=== PATIENT | female | born 1985 | race Caucasian/White ===

== ENCOUNTER 2024-04-18 12:01 | Inpatient (IN) | payer OTHER ==
[2024-04-18 12:49] VITALS: BMI 33.9
[2024-04-18] MEDS ORDERED: IBUPROFEN 400 MG TABLET (FP) PO PRN (13:29)
[2024-04-18] MEDS ORDERED: MAGNESIUM HYDROX 2400MG/30ML ORAL SUSPENSION 30 ML CUP PO PRN (13:29)
[2024-04-18] MEDS ORDERED: BENZOCAINE/MENTHOL (CHLORASEPTIC ) LOZENGE MM PRN (13:29)
[2024-04-18] MEDS ORDERED: LOPERAMIDE HCL 2 MG CAPSULE PO PRN (13:29)
[2024-04-18] MEDS ORDERED: guaiFENesin 600 MG TABLET.ER (FP) PO PRN (13:29)
[2024-04-18] MEDS ORDERED: POLYETHYLENE GLYCOL (HEALTHYLAX) 3350 17 GM PACKET PO PRN (13:29)
[2024-04-18] MEDS ORDERED: BENZONATATE 200 MG CAPSULE PO PRN (13:29)
[2024-04-18] MEDS ORDERED: ACETAMINOPHEN 325 MG TABLET (FP) PO PRN (13:29)
[2024-04-18] MEDS: PHENAZOPYRIDINE HCL 100 MG TABLET (FP) PO ONE (15:02)
[2024-04-18] MEDS: NICOTINE POLACRILEX 2 MG GUM BUC PRN (15:40)
[2024-04-18] MEDS: IBUPROFEN 600 MG TABLET (FP) PO PRN (16:40)
[2024-04-18 17:42] LABS: PH,URINE 6.5 (5.0-8.0); URINE APPEARANCE CLEAR; URINE BILIRUBIN NEGATIVE (NEGATIVE); URINE COLOR YELLOW; URINE GLUCOSE (UA) 2+ (NEGATIVE); URINE KETONE NEGATIVE (NEGATIVE); URINE LEUK ESTERASE NEGATIVE (NEGATIVE); URINE NITRITE POSITIVE (NEGATIVE); URINE PROTEIN NEGATIVE (NEGATIVE); URINE UROBILINOGEN 0.2 mg/dL (0.2-1.0)
[2024-04-18 18:07] LABS: HYALINE CASTS 0.27 /uL (0-3.1)
[2024-04-18] MEDS: hydrOXYzine PAMOATE 25 MG CAPSULE (FP) PO PRN (18:14)
[2024-04-18] MEDS: MELATONIN 5 MG TABLETS PO SCH (21:09)
[2024-04-18] MEDS: GABAPENTIN 100 MG CAPSULE PO SCH (21:09)
[2024-04-18] MEDS: THIAMINE 100 MG TABLET PO SCH (21:10)
[2024-04-18] MEDS: BUPRENORPHINE/NALOXONE 8 MG/2 MG FILM PACKET SL SCH (21:10)
[2024-04-19] MEDS: PHENAZOPYRIDINE HCL 100 MG TABLET (FP) PO ONE (09:16)
[2024-04-19] MEDS: SULFAMETHOXAZOLE/TRIMETHOPRIM 800MG/160MG D.S. TABLET PO SCH (09:16)
[2024-04-19] MEDS: PRENATAL VITAMINS W/ FOLIC ACID TABLET (FP) PO SCH (09:16)
[2024-04-19] MEDS: NICOTINE 21 MG/24 HOURS TOPICAL PATCH TD SCH (09:16)
[2024-04-19 12:04] LABS: POTASSIUM 4.8 mmol/L (3.5-5.1)
[2024-04-19 12:07] LABS: BLOOD UREA NITROGEN 15.7 mg/dL (7-18); CALCIUM 8.9 mg/dL (8.5-10.1); HEMATOCRIT 35.6 % (32.4-45.2); HEMOGLOBIN 12.3 GM/dL (10.7-15.3); MCH 29.3 pg (25.7-33.7); MCHC 34.5 g/dl (32.0-36.0); MEAN CELL VOLUME 85.1 fl (80-96); MEAN PLT VOLUME 8.1 fl (7.5-11.1); PLATELET COUNT 225 10^3/uL (134-434); RBC 4.19 M/mm3 (3.60-5.2); RDW 13.2 % (11.6-15.6); WHITE BLOOD COUNT 4.2 K/mm3 (4.0-10.0)
[2024-04-19 12:08] LABS: ALBUMIN 3.4 g/dl (3.4-5.0)
[2024-04-19 12:10] LABS: CREATININE 0.6 mg/dL (0.55-1.3)
[2024-04-19 12:12] LABS: BILIRUBIN,TOTAL 0.3 mg/dL (0.2-1); TOT PROT 7.1 g/dl (6.4-8.2)
[2024-04-19 12:37] LABS: SYPHILIS W/ RPR CONF REACTIVE (NONREACTIVE)
[2024-04-19] MEDS: DULoxetine HCL 30 MG CAPSULE.DR PO SCH (14:13)
[2024-04-19] MEDS: GABAPENTIN 400 MG CAPSULE PO SCH (14:13)
[2024-04-19] MEDS: hydrOXYzine PAMOATE 50 MG CAPSULE (FP) PO PRN (17:16)
[2024-04-19] MEDS: MIRTAZAPINE 15 MG TABLET (FP) PO SCH (21:50)
[2024-04-20] MEDS: NICOTINE POLACRILEX 2 MG LOZENGE BC PRN (10:57)
[2024-04-20] MEDS: GABAPENTIN 300 MG CAPSULE PO SCH (13:59)
[2024-04-20] MEDS: BUPRENORPHINE/NALOXONE 12 MG-3 MG SL FILM PACKET SL SCH (17:47)
[2024-04-21 15:50] LABS: HIV INTERPRETATION NEGATIVE (NEGATIVE)
[2024-04-24] MEDS ORDERED: PENICILLIN G BENZATHINE 2,400,000 UNIT/4 ML PFS IM ONE (10:00)
[2024-04-24] MEDS: NICOTINE POLACRILEX 4 MG LOZENGE BC PRN (12:41)
[2024-04-25] MEDS: NALOXONE (NARCAN) HCL 4 MG/0.1 ML SPRAY NS PRN (10:24)
[2024-04-25] MEDS ORDERED: MIRTAZAPINE 15 MG TABLET (FP) PO PRN (22:00)
[2024-04-26] MEDS ORDERED: DULoxetine HCL 30 MG CAPSULE.DR PO ONE (10:40)
[2024-04-26] MEDS: DULoxetine HCL 60 MG CAPSULE.DR PO SCH (10:44)
[2024-04-27] MEDS ORDERED: DULoxetine HCL 30 MG CAPSULE.DR PO ONE (09:30)
[2024-04-27] MEDS: MAG HYDROX/AL HYDROX/SIMETH 30 ML UNIT-DOSE CUP PO PRN (12:58)
[2024-04-28 18:42] VITALS: BP 143/88; PULSE 86; RESP 18; TEMP 97.8
[2024-05-01] MEDS ORDERED: PENICILLIN G BENZATHINE 2,400,000 UNIT/4 ML PFS IM ONE (10:00)
== END 2024-04-28 07:25 | disposition home or self-care (01) | DRG 772 ==
LOC: YASAS 12:01 → Y3NR 14:24 → Y5N 04-20 11:23
PROVIDERS: ADMIT Psychiatry & Neurology Pain Medicine; ATTEND Psychiatry & Neurology Pain Medicine
PROC: HZ42ZZZ Group Counseling for Substance Abuse Treatment, Cognitive-Behavioral (ICD-10-PCS; principal; 2024-04-18)
DX: F11.20 Opioid dependence, uncomplicated (principal); F14.20 Cocaine dependence, uncomplicated; F15.20 Other stimulant dependence, uncomplicated; F17.210 Nicotine dependence, cigarettes, uncomplicated; F19.280 Other psychoactive substance dependence with psychoactive substance-induced anxiety disorder; F19.282 Other psychoactive substance dependence with psychoactive substance-induced sleep disorder; F19.24 Other psychoactive substance dependence with psychoactive substance-induced mood disorder; N39.0 Urinary tract infection, site not specified; Z62.810 Personal history of physical and sexual abuse in childhood; Z91.410 Personal history of adult physical and sexual abuse; Z63.8 Other specified problems related to primary support group
CPT/HCPCS: 36415; 80053; 80305; 80307; 81003; 81025; 85027; 86593; 86780; 86803; 87389; 87491; 87522; 87591; 87661; 87811; 93005; 93010